=== PATIENT | female | born 1980 | race American Indian/Alaskan Native ===

== ENCOUNTER 2020-05-24 23:46 | Emergency (ER) | payer SELFPAY | END 2020-05-25 01:00 | disposition left against medical advice (07) | LOC: ED 23:46 | DX: F41.9 Anxiety disorder, unspecified (principal); Z53.21 Procedure and treatment not carried out due to patient leaving prior to being seen by health care provider ==

== ENCOUNTER 2020-10-17 04:57 | Emergency (ER) | payer OTHER, MEDICAID ==
[2020-10-17] MEDS ORDERED: NORepinephrine/NS 4 MG-250 ML 4 MG/250 ML BAG IV ONE (05:25)
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
--- NOTE | 2020-10-17 05:59 | XRay Report ---
CHEST 1 VIEW INDICATION: intubation. COMPARISON: None. FINDINGS: Support devices: Endotracheal tube is in satisfactory position. Heart: Stable. Lungs/Pleura: There are perihilar opacities greater on the right. No pneumothorax or significant effu cristin. IMPRESSION: 1. ET tube in good position. 2. Patchy bilateral pulmonary opacities in the perihilar regions, greater on the right. Signer Name: Price Wood MD Signed: 10/17/2020 5:54 AM Workstation Name: [id number]
== END 2020-10-17 07:50 ==
LOC: ED 04:57
DX: S01.01XA Laceration without foreign body of scalp, initial encounter (principal); I46.9 Cardiac arrest, cause unspecified; I10 Essential (primary) hypertension; J45.909 Unspecified asthma, uncomplicated; Z79.899 Other long term (current) drug therapy; F17.200 Nicotine dependence, unspecified, uncomplicated; V49.49XA Driver injured in collision with other motor vehicles in traffic accident, initial encounter; Y93.89 Activity, other specified; Y92.488 Other paved roadways as the place of occurrence of the external cause; Y99.8 Other external cause status
CPT/HCPCS: 31500; 71045; 92950